=== PATIENT | male | born 1965 | race Caucasian/White ===

== ENCOUNTER 2018-04-26 19:16 | Emergency (ER) | payer SELFPAY ==
[~2018-04-26] VITALS: Ht 185.4 cm; Wt 123.0 kg
[2018-04-26] MEDS ORDERED: NIX 5% CREAM60 GM TP (19:26)
[2018-04-26] MEDS ORDERED: MEDROL DOSEPAK4 MG PO (19:26)
[2018-04-26 19:50] VITALS: BP 143/90
== END 2018-04-26 19:51 | disposition home or self-care (01) ==
LOC: EME 19:16 → EXP 19:16
DX: S40.862A Insect bite (nonvenomous) of left upper arm, initial encounter (principal); S40.861A Insect bite (nonvenomous) of right upper arm, initial encounter; S80.862A Insect bite (nonvenomous), left lower leg, initial encounter; S80.861A Insect bite (nonvenomous), right lower leg, initial encounter; W57.XXXA Bitten or stung by nonvenomous insect and other nonvenomous arthropods, initial encounter; L30.9 Dermatitis, unspecified
CPT/HCPCS: 99281; 99282